=== PATIENT | male | born 1960 | race Caucasian/White ===

== ENCOUNTER 2021-09-28 06:27 | Day surgery (SDC) | payer OTHER ==
[2021-09-27 16:32] LABS: COVID AG,FIA SOURCE NASOPHARYNGEAL
[~2021-09-28] VITALS: Ht 160 cm; Wt 104.5 kg
[~2021-09-28 06:27] MED LIST: ASPI-1450 PO; ATOR40TA28 PO; EMPA10TA PO; FLUT1AER IH; FURO40 PO; GABA-1181 PO; LISI-894 PO; METF-1211 PO; METO50 PO; MONT-35 PO; OMEG-126 PO
[2021-09-28] MEDS ORDERED: SODIUM CHLORIDE 0.9% 1,000 ML IV ONE (06:30)
[2021-09-28] MEDS ORDERED: SODIUM CHLORIDE 0.9% 1,000 ML ONE (07:11)
[2021-09-28 07:46] LABS: GLUCOMETER DEV NAME(LOC) SDS.; GLUCOSE,POINT OF CARE 123 MG/DL (70-110)
[2021-09-28] MEDS ORDERED: MethylPREDNISolone SOD SUCC 125 MG/2 ML VIAL IVP ONE (09:00)
[2021-09-28] MEDS ORDERED: MethylPREDNISolone SOD SUCC 125 MG/2 ML VIAL ONE (09:22)
[2021-09-28] MEDS ORDERED: OXYGEN THERAPY IH SCH (20:00)
== END 2021-09-28 11:10 | disposition home or self-care (01) ==
LOC: SURGERY 06:27
PROVIDERS: ATTEND Internal Medicine Critical Care Medicine
DX: J38.4 Edema of larynx (principal); B37.0 Candidal stomatitis; I10 Essential (primary) hypertension; E11.9 Type 2 diabetes mellitus without complications; J45.909 Unspecified asthma, uncomplicated; Z79.899 Other long term (current) drug therapy; Z79.01 Long term (current) use of anticoagulants; Z90.49 Acquired absence of other specified parts of digestive tract
CPT/HCPCS: 31623; 31624; 71045; 82962; 87015; 87070; 87101; 87206; 87220; 87426; 88184; 88185; C9803; J2930; J7030; 88112; 88312

== ENCOUNTER 2022-11-01 07:09 | Day surgery (SDC) | payer OTHER ==
[~2022-11-01] VITALS: Ht 160 cm; Wt 104.4 kg
[~2022-11-01 07:09] MED LIST changes: +ALBU18HF12 IH; -EMPA10TA PO; +EMPA10TA3 PO; +FAMO20 PO; +FLUT16H NASAL; +INSU100I26 SQ; +LATA2.5D14 OU; +METO-391 PO; -METO50 PO; +SEMA1PEN3 SQ
[2022-11-01] MEDS ORDERED: LIDOCAINE 4% 50 ML SOLUTION TP ONE (07:10)
[2022-11-01] MEDS ORDERED: BENZOCAINE 20% 50 MCG/SPRAY 57 GM TP ONE (07:10)
[2022-11-01] MEDS ORDERED: LIDOCAINE 2% 11 ML JELLY TP ONE (07:10)
[2022-11-01] MEDS ORDERED: FentaNYL CITRATE PF 100 MCG/2 ML VIAL ONE (07:42)
[2022-11-01] MEDS ORDERED: MIDAZOLAM HCL 2 MG/2 ML VIAL ONE (07:42)
[2022-11-01] MEDS ORDERED: SODIUM CHLORIDE 0.9% 1,000 ML ONE (07:51)
[2022-11-01 07:55] LABS: COVID AG,FIA SOURCE NASAL SWAB
[2022-11-01] MEDS ORDERED: SODIUM CHLORIDE 0.9% 1,000 ML IV ONE (08:00)
[2022-11-01] MEDS ORDERED: MethylPREDNISolone SOD SUCC 125 MG/2 ML VIAL ONE (10:15)
[2022-11-01] MEDS ORDERED: MethylPREDNISolone SOD SUCC 125 MG/2 ML VIAL IVP ONE (10:30)
== END 2022-11-01 12:05 | disposition home or self-care (01) ==
LOC: SURGERY 07:09
PROVIDERS: ATTEND Internal Medicine Critical Care Medicine
DX: R05.3 Chronic cough (principal); R91.1 Solitary pulmonary nodule; J98.09 Other diseases of bronchus, not elsewhere classified; J98.8 Other specified respiratory disorders; I10 Essential (primary) hypertension; Z98.890 Other specified postprocedural states; Z87.891 Personal history of nicotine dependence; E11.9 Type 2 diabetes mellitus without complications; Z79.4 Long term (current) use of insulin
CPT/HCPCS: 31623; 88112; 87101; 87220; 87070; 31624; 71045; 87015; 87426; 87206; J3010; J2250; J2930; Q9967; J7030; C9803; Z7610